=== PATIENT | male | born 1960 | race American Indian/Alaskan Native ===

== ENCOUNTER 2018-07-25 17:51 | Emergency (ER) | payer SELFPAY ==
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
[2018-07-25 18:36] LABS: CHLORIDE,CL 102 mmol/L (98-107); SODIUM,NA 131 mmol/L (136-148)
[2018-07-25] MEDS ORDERED: Sodium Chloride 0.9% 1,000 ML IV ONE (19:11)
[2018-07-25] MEDS ORDERED: Potassium Chloride 20 MEQ Tab.ER PO ONE (19:14)
== END 2018-07-25 21:05 | disposition home or self-care (01) ==
LOC: MW.ED 17:51
DX: T67.5XXA Heat exhaustion, unspecified, initial encounter (principal)
CPT/HCPCS: 36415; 80053; 81003; 82550; 83605; 84484; 85025; 93005; 96360; 99285; A9270; J7040